=== PATIENT | female | born 1995 | race Caucasian/White ===

== ENCOUNTER 2018-09-04 17:02 | Inpatient (IN) | payer OTHER ==
[~2018-09-04] VITALS: Ht 154.9 cm; Wt 102.1 kg
[2018-09-09] MEDS ORDERED: FAMOTIDINE(*) 20MG/50ML PREMIX 50 ML IVPB PRN (20:30)
[2018-09-09] MEDS ORDERED: LIDOCAINE/SOD BICARB 8.4% SYR SC PRN (20:30)
[2018-09-09] MEDS ORDERED: LIDOCAINE 1% LOCAL 300 MG/30ML INJ PRN (20:30)
[2018-09-09] MEDS ORDERED: TERBUTALINE SULF 1 MG/ML VIAL IVP PRN (20:30)
[2018-09-09] MEDS ORDERED: fentaNYL CITR 100 MCG/2 ML AMP IVP PRN (20:30)
[2018-09-09] MEDS ORDERED: FLUSH 10 ML SYR IVP PRN (20:30)
[2018-09-09] MEDS ORDERED: METOCLOPRAMIDE 10 MG/2 ML SDV IVP PRN (20:30)
[2018-09-09] MEDS ORDERED: DLR(*) 1000 ML BAG 1,000 ML IV SCH (20:30)
[2018-09-09 20:50] LABS: PLATELET COUNT, AUTOMATED 313 K/uL (150-450)
[2018-09-09] MEDS ORDERED: ceFAZolin(*) 2GM/D5W 50ML 50 ML IVPB PRN (20:51)
[2018-09-09] MEDS ORDERED: DINOPROSTONE 10 MG INSERT PV ONE (20:55)
[2018-09-09 21:00] VITALS: BP 124/66; Ht 154.9 cm; Wt 102.1 kg
[2018-09-09] MEDS ORDERED: ZOLPIDEM TARTRATE 10 MG TAB PO PRN (21:00)
[2018-09-09] MEDS ORDERED: CALCIUM CARBONATE 500 MG CHEW PO PRN (21:00)
[2018-09-09] MEDS: LR(*) 1000 ML BAG 1,000 ML IV PRN (21:58)
[2018-09-09] MEDS ORDERED: MOM PO (22:38)
[2018-09-09] MEDS ORDERED: LACT1CAP12 (22:38)
[2018-09-09] MEDS ORDERED: PNV1TABL77 PO (22:38)
[2018-09-09] MEDS ORDERED: VIT500TA (22:38)
[2018-09-10] MEDS ORDERED: OXYTOCIN 30 UNIT/D5LR 500 ML 500 ML IV PRN ×2 (03:49→08:25)
[2018-09-10] MEDS: DLR(*) 1000 ML BAG 1,000 ML IV PRN ×2 (07:46→19:04)
[2018-09-10] MEDS: LR(*) 1000 ML BAG 1,000 ML IV PRN (07:46)
[2018-09-10] MEDS ORDERED: LR(*) 1000 ML BAG 1,000 ML IV PRN (10:32)
[2018-09-10] MEDS ORDERED: LIDO/EPI 2% MPF 1:200,000 20ML EPI PRN (10:35)
[2018-09-10] MEDS ORDERED: FENTANYL/ROPIVACAINE 100 ML BAG EPI PRN (10:35)
[2018-09-10] MEDS ORDERED: EPIDURAL KEYS XX PRN (10:35)
[2018-09-10] MEDS ORDERED: fentaNYL CITR 100 MCG/2 ML AMP IT PRN (10:35)
[2018-09-10] MEDS ORDERED: LIDOCAINE/PF 2% 200MG/10ML AMP 200 MG/10 ML AMPUL EPI PRN (10:35)
[2018-09-10] MEDS ORDERED: BUPIVACAINE 0.25% MPF INJ EPI PRN (10:35)
[2018-09-10] MEDS ORDERED: BUPIVACAINE 0.5% INJ 30ML VIAL EPI PRN (10:35)
[2018-09-10] MEDS ORDERED: ONDANSETRON 4 MG/2 ML VIAL ONE (10:59)
--- NOTE | 2018-09-10 11:57 | Anesthesia OB Pre-Anes Eval ---
History of Present Illness Anesthesia Start Date: Sep 10, 2018 Anesthesia Start Time: 11:02 OB Anesthesia Diagnosis: induction - medical EDC: Sep 04, 2018 : 1 Para: 0 Vital Signs: Vital Signs 09/09/18 21:00 Temp 97.1 Pulse 96 Resp 22 B/P (MAP) 124/66 (85) Pulse Ox 100 O2 Delivery Room Air Pain Ratin Result Diagram: 09/09/182039 Height (Inches): 61.00 Weight (Pounds): 225 BMI (kg/m2): 42.50 Past Medical History Medical History: obesity Surgical History: no surgical history Attended Childbirth Classes?: No Hx Anesthesia Reactions: No Hx Family Anesthesia Reaction: No Current Medications: pitocin, pain medication Home Meds Reported Medications Vit C/Ascorb Sod/Multivit-Min (Emergen-C 500 mg Chewable Tab) 500 Mg Tab.chew 09/09/18 Magnesium Hydroxide (MILK OF MAGNESIA) 400 Mg/5 Ml Oral.susp, 400 MG PO, BOTTLE 09/09/18 Lactobacillus Combo No.11 (PROBIOTIC) 1 Each Cap.sprink 09/09/18 Pnv Cmb#21/Iron/Folic Acid ( COMPLETE CAPLET) 1 Each Tablet, 1 EACH PO 09/09/18 Allergies: Coded Allergies: No Known Drug Allergies (Unverified , 09/09/18) Anesthesia OB ROS Neurological: No migraines/headaches, No seizures, No neuropathy, No other ENT: Denies Tooth caps, Denies Loose teeth, Denies Chipped teeth, Denies Dentures, Denies Bridges, Denies Retainers, Denies Veneers, Denies Implants, Denies Tongue ring, Denies Other Pulmonary: No asthma, No smoker (pks/day/yrs), No other Airway Class: lll Cardiovascular ROS: No edema, No arrhythmia, No other GI ROS: clear liquids Last Solids Date: Sep 09, 2018 Last Solids Time: 18:30 ROS: No Herpes, No STD(s), No Liver Disease, No Renal Disease, No Other Endocrine ROS: other (obese) Musculoskeletal ROS: No low back pain, No low back injury, No scoliosis, No other ASA Classification: 3 Assessment and Plan Anesthesia Plan: RAMA WOODSON CRNA Sep 10, 2018 11:57
--- NOTE | 2018-09-10 12:01 | Procedure Note ---
Anesthetic Placement Note Anesthesia Plan: CSE Permit for Anesthesia Signed: Yes Anesthesia Technique: Patient Sitting Anesthesia Prep: Chlorhexidine Interspace: L 2-3 Local Anesthetic: 1% Lidocaine Amount Local - cc's: 3 Anesthesia Needle: 17g Touhchandrika/Schishmaelff Anesthesia Attempts: 1 Loss of Resistance: Normal Saline Depth of ANTON (cm): 8 Epidural Needle Placement: No CSF, No Blood, No Parasthesia Intrathecal Needle: 27 Gauge Pencan Cerebral Spinal Fluid: Yes, Clear Catheter Insertion (cm): 4.5 (12 cm = skin) Catheter Type: [place] - Spring Wound Epidural Dressing: Tegaderm, Tape Anesthesia Tray: Lot Number ([id number]), Expiration Date (08/01), Reference Number ([id number]) Comment: deep adipose tissue along lumbar spine. Unable to feel any chelsie structures Anesthesia Medications: Intrathecal Dose: mcg Fentanyl (10), mg Marcaine MPF (2.5), Time (1120) Epidural Test Dose: 1.5 Lido/Epi (1:200,000), Dose - mL (3), Time (1123), Negative Epidural Infusion: 0.2% Ropivicaine, With Fentanyl 2mcg/ml, Start Time: (1138) Epidural Pump Setting: Bolus Dose - mL (8), Lockout - Minutes (20), Maintenance Rate - mL/hr (6), Maximum per Hour - mL (30) Complications: None RAMA SMITH CRNA Sep 10, 2018 12:01
--- NOTE | 2018-09-10 12:34 | History & Physical ---
History of Present Illness Age of Patient: 22 : 1 Para or TPAL: 0 EDC per LMP: Sep 04, 2018 Estimated Gestational Age: 40.6 Chief Complaint Labor induction History of Present Illness Presented for IOL, planned due to post-dates. care started at [facility] and transferred to al at 18 weeks. has been complicated initially by marginal previa, no bleeding but resolved on u/s at 27 weeks. Had Cervidil last night and was removed at 3 AM due to concern over decelerations. Has been transitioned to Pitocin. Past Medical, Surgical, Family and Obstetric Histories reviewed. Please see ACOG chart. History Allergies: Coded Allergies: No Known Drug Allergies (Unverified , 09/09/18) Med Rec Home Meds Reported Medications Vit C/Ascorb Sod/Multivit-Min (Emergen-C 500 mg Chewable Tab) 500 Mg Tab.chew 09/09/18 Magnesium Hydroxide (MILK OF MAGNESIA) 400 Mg/5 Ml Oral.susp, 400 MG PO, BOTTLE 09/09/18 Lactobacillus Combo No.11 (PROBIOTIC) 1 Each Cap.sprink 09/09/18 Pnv Cmb#21/Iron/Folic Acid ( COMPLETE CAPLET) 1 Each Tablet, 1 EACH PO 09/09/18 Review of Systems All Systems Reviewed/Normal: Yes, Except as Noted Exam General Exam Vital Signs Vital Signs Date Time Temp Pulse Resp B/P (MAP) Pulse Ox O2 Delivery O2 Flow Rate FiO2 09/09/18 21:00 97.1 96 22 124/66 (85) 100 Room Air General Apperance: Alert/Awake/No Acute Distress Neuro: No Gross deficits Eyes: Normal Extraocular Movement & Vison Cardiovascular: Regular Rate and Rhythm Respiratory: No Respiratory Distress Abdomen: Soft, Non-Tender, Non-Distended, Gravid - Non-Tender Integumentary: Skin Intact without Lesions or Rash Psychological: Alert & Oriented X3, Appropriate Mood & Affect Cervical Dialation: 5 Cervical Effacement (%): 100 Cervical Consistency: Soft Cervical Position: Anterior Station: -1 Presentation: Vertex Fetus Heart Tone Variabilty: Moderate FHT Accelerations: 15X15 FHT Category: I Medical Decision Making Data Points Result Diagram: 09/09/182039 Pre-Admit Course Medical Record Review: Yes VTE Prophylasis: Adult Deep Vein Thrombosis/Pulmonary: No Pharmacological Contraindicati: Pt at Low Risk for VTE Mechanical Contraindications: Pt at Low Risk for VTE 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 Expecting . Epidural just placed and comfortable. TACO COATES MD Sep 10, 2018 12:34
--- NOTE | 2018-09-10 16:07 | Anesthesia Progress Note ---
Progress/Maintenance Anesthesia Note Date: Sep 10, 2018 Anesthesia Note Time: 16:00 Pain Intensity: 1 Pump: On Pump Rate (ML/HR): 6 Sensory Level: perineal pressure Motor Level: Bending Knees-Bilateral Dilatation: 8 Position: Left, Tilt Drug Bolus: 0.2% Ropivicaine RAMA SMITH CRNA Sep 10, 2018 16:07
--- NOTE | 2018-09-10 20:33 | Anesthesia Progress Note ---
Progress/Maintenance Anesthesia Note Date: Sep 10, 2018 Anesthesia Note Time: 19:50 Pain Intensity: 5 Pump: On Pump Rate (ML/HR): 6 Sensory Level: pressure Motor Level: Bending Knees-Bilateral Dilatation: 10 Position: Semi-Fowlers Drug Bolus: 0.2% Ropivicaine, Fentanyl 2mcg/ml Anesthesia Treatment: pump bolus for RAMA Lutz CRNA Sep 10, 2018 20:33
--- NOTE | 2018-09-10 20:35 | Labor Progress Note ---
Labor Subjective Progress Notes Subjective Has progressed to completely dilated. Baby was in the LOP position on my assessment but rotated manually to CHEYANNE and is holding that position now. Effectively pushing. Pitocin had been reduced to 10 mu/min over concern about decelerations. Contractions now spacing out. Vaginal Discharge/Fluid: Bloody Show, Clear Fluid Labor Objective Vital Signs Vital Signs Date Time Temp Pulse Resp B/P (MAP) Pulse Ox O2 Delivery O2 Flow Rate FiO2 09/09/18 21:00 97.1 96 22 124/66 (85) 100 Room Air Vaginal Discharge/Fluid?: Bloody Show, Clear Fluid Cervical Dialation: 10 Cervical Effacement (%): 100 Cervical Consistency: Soft Cervical Position: Anterior Station: +3 (CHEYANNE) Fetus Heart Tone Variabilty: Moderate FHT Decelerations: Variable (with contractions) FHT Category: I Other Result Diagram: 09/09/182039 Assessment and Plan Problems: (1) Post-dates Assessment & Plan: approaching delivery soon. Will adjust and titrate Pitocin to meet labor needs. Coaching through contractions with pushing. Expecting . Problem Qualifiers (1) Post-dates : Post-term type: 40-42 weeks gestation Qualified Codes: O48.0 - Post-term TACO COATES MD Sep 10, 2018 20:35
[2018-09-10] MEDS ORDERED: INFLUENZA VIRUS VAC 0.5ML SYR IM ONLY ONE (21:25)
[2018-09-10] MEDS ORDERED: ACETAMINOPHEN 325 MG TAB PO PRN (21:25)
[2018-09-10] MEDS ORDERED: LANOLIN OINT 7 GM TUBE TP PRN (21:25)
[2018-09-10] MEDS ORDERED: BENZOCAINE 20% 60 ML BTL TP PRN (21:25)
[2018-09-10] MEDS ORDERED: MAGNESIUM HYDROXIDE* 30ML UDCP PO PRN (21:25)
[2018-09-10] MEDS ORDERED: MEASLES,MUMP,RUBELLA VAC 0.5ML SUBQ ONE (21:25)
[2018-09-10] MEDS ORDERED: APAP/HYDROCODONE 325/5 TAB PO PRN (21:25)
[2018-09-10] MEDS ORDERED: DIPHTH/TETANUS/ACEL. PERTUSSIS IM ONLY ONE (21:25)
[2018-09-10] MEDS ORDERED: HYDROCORTISONE 2.5% CR 30GM TB PR PRN (21:25)
[2018-09-10] MEDS ORDERED: GLYCERIN/WITCH HAZEL LEAF 1 PK TP PRN (21:25)
--- NOTE | 2018-09-10 21:33 | OB Delivery Note ---
Delivery Note Vaginal Delivery Type: Spont. Vaginal Delivery Delivery Date: Sep 10, 2018 Delivery Time: 21:03 Estimated Gestational Age(wks): 40.6 Delivery Anesthesia: Epidural Sex: Female [place] Apgars: 1 Minute (8), 5 Minute (9) Repair Needed: Laceration, Labial (left majora), 1st Degree Estimated Blood Loss: 500 Delivery Complications: Hemorrhage (early uterine atony resolved with Pitocin infusion) Notes: IOL beginning last night with Cervidil. Cervidil removed early at 0300 and then Pitocin was not started until 8 am. Was 2 cm on admission, progressing to 3 cm by 1025, 5 cm by 1200 and 6-7 cm by 1400. Baby felt to be in LOP position. Slow further progression to 8 cm by 1557, 9.5 cm by 1803 and labored down to complete by 2008. Baby was able to manually rotate to CHEYANNE with pushing and progressed resumed at normal pace. Variable decelerations were noted at time along with category 1 tracing. Delivered in CHEYANNE position over a first degree laceration with extension to left labia majora. Placenta delivered intact and spontaneous. Repair with 2-0 Chromic with good result. Early uterine atony produced some brisk bleeding initially but responded well to massage and Pitocin bolus. Bleeding scant upon completion of repair. [employer] in Attendence: No Copies to: TACO COATES MD ; TACO COATES MD Sep 10, 2018 21:33
[2018-09-10] MEDS: IBUPROFEN 800 MG TAB PO SCH (21:51)
[2018-09-10 23:40] VITALS: BP 107/51
[2018-09-11 03:00] VITALS: BP 114/57
[2018-09-11] MEDS: IBUPROFEN 800 MG TAB PO SCH ×3 (06:39→23:08)
[2018-09-11 07:25] VITALS: BP 111/59
[2018-09-11] MEDS ORDERED: IBUPROFEN 800 MG TAB PO SCH (09:00)
[2018-09-11] MEDS: DOCUSATE CALCIUM 240 MG CAP PO SCH ×2 (10:13→20:36)
[2018-09-11 11:20] VITALS: BP 110/56
--- NOTE | 2018-09-11 12:07 | Anesthesia Post Eval Note ---
Anesthesia Post Eval Note Vital Signs 09/11/18 09/11/18 07:25 11:20 Temp 97.5 Pulse 89 Resp 16 B/P (MAP) 110/56 (74) Pulse Ox 95 O2 Delivery Room Air Pt able to participate in Eval: Yes Cardiovascular Status: Satisfactory Respiratory Status: Satisfactory Pain Managment: Satisfactory PO Nausea/Vomiting: Satisfactory Temperature Management: Satisfactory Mental Status: Satisfactory, Alert, Oriented X3 Post-Op Hydration Status: Satisfactory, Tolerating PO Well, Voiding w/o Difficulty Anesthesia Type: RAMA WOODSON CRNA Sep 11, 2018 12:07
--- NOTE | 2018-09-11 12:19 | OB/GYN Progress Note ---
OB Subjective Progress Notes Subjective Feeling well. Up to BR well and voiding well. Bleeding light. GI: NEG Nausea : Voiding Well Pain: Mild OB Objective Physical Exam Vital Signs Date Time Temp Pulse Resp B/P (MAP) Pulse Ox O2 Delivery O2 Flow Rate FiO2 09/11/18 11:20 97.5 89 16 110/56 (74) Room Air 09/11/18 07:25 95 Intake and Output 09/11/18 07:00 Intake Total 5000 ml Output Total 1500 ml Balance 3500 ml IV Total 5000 ml Output Urine Total 1500 ml General Appearance: Alert/Awake/No Acute Distress Neurological: No Gross deficits Eyes: Normal Extraocular Movement & Vison Respiratory: No Respiratory Distress, Clear to Auscultation Abdomen: Soft, Non-Tender, Non-Distended, Fundus Firm Integumentary: Skin Intact without Lesions or Rash Psychological: Alert & Oriented X3, Appropriate Mood & Affect Result Diagram: 09/11/18 0623 Assessment and Plan 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 Precautions and continue PNVs. (3) care and examination immediately after delivery Assessment & Plan: Continue breast feeding support and plan home tomorrow. Problem Qualifiers (1) Post-dates : Post-term type: 40-42 weeks gestation Qualified Codes: O48.0 - Post-term TACO COATES MD Sep 11, 2018 12:19
[2018-09-11] MEDS: ACETAMINOPHEN 325 MG TAB PO PRN ×2 (13:29→20:38)
[2018-09-11 18:56] VITALS: BP 115/53
[2018-09-11 23:06] VITALS: BP 112/66
[2018-09-12 03:45] VITALS: BP 117/55
[2018-09-12] MEDS: IBUPROFEN 800 MG TAB PO SCH (07:14)
--- NOTE | 2018-09-12 08:05 | OB/GYN Progress Note ---
OB Subjective Progress Notes Subjective Feeling well. Pain well controlled and bleeding light. GI: NEG Nausea : Voiding Well Pain: Mild OB Objective Physical Exam Vital Signs Date Time Temp Pulse Resp B/P (MAP) Pulse Ox O2 Delivery O2 Flow Rate FiO2 09/12/18 03:45 97.7 78 18 117/55 (75) Blow-by 09/11/18 07:25 95 Intake and Output 09/12/18 07:00 Intake Total 120 ml Output Total 300 ml Balance -180 ml Intake Oral 120 ml Output Urine Total 300 ml # Voids 1 General Appearance: Alert/Awake/No Acute Distress Neurological: No Gross deficits Eyes: Normal Extraocular Movement & Vison Cardiovascular: Normal Rhythm & Peripheral Pulses, Regular Rate and Rhythm Respiratory: No Respiratory Distress, Clear to Auscultation Abdomen: Soft, Non-Tender, Non-Distended, Fundus Firm Integumentary: Skin Intact without Lesions or Rash Psychological: Alert & Oriented X3, Appropriate Mood & Affect Result Diagram: 09/11/18 0623 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 Call if problems. Precautions reviewed. Problem Qualifiers (1) Post-dates : Post-term type: 40-42 weeks gestation Qualified Codes: O48.0 - Post-term TACO COATES MD Sep 12, 2018 08:05
[2018-09-12] MEDS ORDERED: IBUP800T37 PO (08:07)
--- NOTE | 2018-09-12 08:10 | OB/GYN Discharge Summary ---
Discharge Summary Reason for Hosp/Final Diag: (1) Post-dates Hospital Course & Plan: Admitted for IOL due to post-dates. Cervidil followed by Pitocin induction resulted in with first degree laceration with left labial extension, repaired well. No complications. (2) Anemia due to acute blood loss Hospital Course & Plan: Initial uterine atony resulted in brisk early bleeding that corrected with massage and Pitocin infusion. Stable postoperative. Will have her continue PNVs with iron. (3) care and examination immediately after delivery Lates Vital Signs Vital Signs Date Time Temp Pulse Resp B/P (MAP) Pulse Ox O2 Delivery O2 Flow Rate FiO2 09/12/18 03:45 97.7 78 18 117/55 (75) Blow-by 09/11/18 07:25 95 Weight (Pounds): 225 Result Diagram: 09/11/18622 Condition: Improved Discharge: Home, Self Prison Meds Reported Medications Vit C/Ascorb Sod/Multivit-Min (Emergen-C 500 mg Chewable Tab) 500 Mg Tab.chew 09/09/18 Magnesium Hydroxide (MILK OF MAGNESIA) 400 Mg/5 Ml Oral.susp, 400 MG PO, BOTTLE 09/09/18 Lactobacillus Combo No.11 (PROBIOTIC) 1 Each Cap.sprink 09/09/18 Pnv Cmb#21/Iron/Folic Acid ( COMPLETE CAPLET) 1 Each Tablet, 1 EACH PO 09/09/18 Follow up 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 Franklin [phone] Follow up in: 6 wks PP or PO Discharge Diet: As Tolerates Discharge Activity: As Tolerates, No Heavy Lifting x 6 wks, No Heavy Lifting > 10lb, Pelvic Rest Copies to: TACO FRANKLIN MD ; Problem Qualifiers (1) Post-dates : Post-term type: 40-42 weeks gestation Qualified Codes: O48.0 - Post-term TACO FRANKLIN MD Sep 12, 2018 08:10
[2018-09-12] MEDS: DOCUSATE CALCIUM 240 MG CAP PO SCH (08:48)
[2018-09-12 08:50] VITALS: BP 122/55
== END 2018-09-12 11:57 | disposition home or self-care (01) | DRG 806 ==
LOC: OB 09-09 19:40 → OBSVTOIN 09-09 19:40
PROVIDERS: ADMIT Obstetrics & Gynecology; ATTEND Obstetrics & Gynecology
PROC: 10E0XZZ Delivery of Products of Conception, External Approach (ICD-10-PCS; principal; 2018-09-09)
PROC: 0HQ9XZZ Repair Perineum Skin, External Approach (ICD-10-PCS; 2018-09-09)
PROC: 3E0P7VZ Introduction of Hormone into Female Reproductive, Via Natural or Artificial Opening (ICD-10-PCS; 2018-09-09)
DX: O48.0 Post-term pregnancy (principal); O72.1 Other immediate postpartum hemorrhage; Z37.0 Single live birth; D62 Acute posthemorrhagic anemia; O76 Abnormality in fetal heart rate and rhythm complicating labor and delivery; O99.214 Obesity complicating childbirth; O90.81 Anemia of the puerperium; O70.0 First degree perineal laceration during delivery; E66.9 Obesity, unspecified; Z3A.40 40 weeks gestation of pregnancy
CPT/HCPCS: 36415; 85025; 85027; 86592; 86850; 86900; 86901; J2405; J2590; J3010; J7120; S0020

== ENCOUNTER 2018-10-07 03:27 | Emergency (ER) | payer OTHER ==
[2018-09-09 21:00] VITALS: Wt 102.1 kg
[2018-10-07] MEDS ORDERED: ONDANSETRON 4 MG/2 ML VIAL IVP ONE (03:50)
[2018-10-07] MEDS ORDERED: GI COCKTAIL 60 ML BTL PO PRN (03:50)
[2018-10-07] MEDS ORDERED: NS(*) 0.9% 1000 ML BAG 1,000 ML IV ONE (03:50)
[2018-10-07 03:55] LABS: PLATELET COUNT, AUTOMATED 466 K/uL (150-450)
[2018-10-07] MEDS ORDERED: MAG HYD/AL HYD/SIMETH 30ML UDC PO ONE (03:55)
[2018-10-07] MEDS ORDERED: LIDOCAINE 2% VISC SLN 15ML UDC PO ONE (03:55)
--- NOTE | 2018-10-07 04:06 | ER Report ---
History and Physical Time Seen By MD: 03:45 Hx. of Stated Complaint: severe abdo pain, 3 weeks HPI/ROS 22 y/o female 3 weeks presents BIBA with midepigastric abdominal pain. Pain awoke her. Had a similar episode last week. Called 911, but did not come to the hospital. Denies alcohol. Episodes usually happen at night while lying down. Feels similar to heartburn. Remainder of the 14 system rev: Yes Allergies: Coded Allergies: No Known Drug Allergies (Unverified , 09/09/18) Home Meds Active Scripts Ibuprofen (IBUPROFEN) 800 Mg Tablet, 800 MG PO Q8H PRN for PAIN, #30 TAB 0 Refills Prov:TACO COATES MD 09/12/18 Reported Medications Vit C/Ascorb Sod/Multivit-Min (Emergen-C 500 mg Chewable Tab) 500 Mg Tab.chew 09/09/18 Magnesium Hydroxide (MILK OF MAGNESIA) 400 Mg/5 Ml Oral.susp, 400 MG PO, BOTTLE 09/09/18 Lactobacillus Combo No.11 (PROBIOTIC) 1 Each Cap.sprink 09/09/18 Pnv Cmb#21/Iron/Folic Acid ( COMPLETE CAPLET) 1 Each Tablet, 1 EACH PO 09/09/18 Reviewed Nurses Notes: Yes Old Medical Records Reviewed: Yes Hx Smoking: No Smoking Status: Never Smoker Exposure to Second Hand Smoke?: No Hx Substance Use Disorder: No Hx Alcohol Use: No Constitutional Vital Sign - Last 24 Hours 10/07/18 03:32 Temp 97.4 Pulse 107 Resp 20 B/P (MAP) 133/82 Pulse Ox 97 O2 Delivery Room Air Physical Exam General Appearance: The patient is alert, has no immediate need for airway protection and no current signs of toxicity. Eyes: Pupils equal and round no injection. Respiratory: Chest is non tender, lungs are clear to auscultation. Cardiac: regular rate and rhythm Gastrointestinal: Abdomen is soft and non tender, no masses, bowel sounds normal. Skin: No rashes or lesions. DIFFERENTIAL DIAGNOSIS: After history and physical exam differential diagnosis was considered for abdominal pain including but not limited to appendicitis, cholecystitis, gastritis and urinary tract infection. Medical Decision Making Data Points Result Diagram: 10/07/18 0328 10/07/18 0328 Laboratory Hematology Test 10/07/18 03:28 Red Blood Count 4.80 M/uL (4.17-5.56) Mean Corpuscular Volume 84.7 fL (80.0-96.0) Mean Corpuscular Hemoglobin 28.1 pg (26.0-33.0) Mean Corpuscular Hemoglobin Concent 33.2 g/dL (32.0-36.0) Red Cell Distribution Width 14.7 % (11.5-14.5) Mean Platelet Volume 7.7 fL (7.2-11.1) Neutrophils (%) (Auto) 41.0 % (39.4-72.5) Lymphocytes (%) (Auto) 46.8 % (17.6-49.6) Monocytes (%) (Auto) 8.2 % (4.1-12.4) Eosinophils (%) (Auto) 3.4 % (0.4-6.7) Basophils (%) (Auto) 0.6 % (0.3-1.4) Nucleated RBC Relative Count (auto) 0.0 /100WBC Neutrophils # (Auto) 4.6 K/uL (2.0-7.4) Lymphocytes # (Auto) 5.3 K/uL (1.3-3.6) Monocytes # (Auto) 0.9 K/uL (0.3-1.0) Eosinophils # (Auto) 0.4 K/uL (0.0-0.5) Basophils # (Auto) 0.1 K/uL (0.0-0.1) Nucleated RBC Absolute Count (auto) 0.00 K/uL Sodium Level 138 mmol/L (137-145) Potassium Level 4.0 mmol/L (3.5-5.0) Chloride Level 106 mmol/L (98-107) Carbon Dioxide Level 25 mmol/L (22-31) Blood Urea Nitrogen 20 mg/dl (7-18) Creatinine 0.80 mg/dl (0.52-1.04) Glomerular Filtration Rate Calc > 60.0 Random Glucose 104 mg/dl (75-110) Calcium Level 10.0 mg/dl (8.4-10.2) Total Bilirubin 0.2 mg/dl (0.2-1.3) Aspartate Amino Transf (AST/SGOT) 57 U/L (0-35) Alanine Aminotransferase (ALT/SGPT) 39 U/L (0-56) Alkaline Phosphatase 121 U/L (0-126) Total Protein 7.8 g/dl (6.3-8.2) Albumin 4.1 g/dl (3.5-5.0) Lipase 179 U/L (23-300) Chemistry Test 10/07/18 03:28 White Blood Count 11.3 k/uL (4.5-11.0) Red Blood Count 4.80 M/uL (4.17-5.56) Hemoglobin 13.5 g/dL (12.0-16.0) Hematocrit 40.6 % (34.0-47.0) Mean Corpuscular Volume 84.7 fL (80.0-96.0) Mean Corpuscular Hemoglobin 28.1 pg (26.0-33.0) Mean Corpuscular Hemoglobin Concent 33.2 g/dL (32.0-36.0) Red Cell Distribution Width 14.7 % (11.5-14.5) Platelet Count 466 K/uL (150-450) Mean Platelet Volume 7.7 fL (7.2-11.1) Neutrophils (%) (Auto) 41.0 % (39.4-72.5) Lymphocytes (%) (Auto) 46.8 % (17.6-49.6) Monocytes (%) (Auto) 8.2 % (4.1-12.4) Eosinophils (%) (Auto) 3.4 % (0.4-6.7) Basophils (%) (Auto) 0.6 % (0.3-1.4) Nucleated RBC Relative Count (auto) 0.0 /100WBC Neutrophils # (Auto) 4.6 K/uL (2.0-7.4) Lymphocytes # (Auto) 5.3 K/uL (1.3-3.6) Monocytes # (Auto) 0.9 K/uL (0.3-1.0) Eosinophils # (Auto) 0.4 K/uL (0.0-0.5) Basophils # (Auto) 0.1 K/uL (0.0-0.1) Nucleated RBC Absolute Count (auto) 0.00 K/uL Glomerular Filtration Rate Calc > 60.0 Calcium Level 10.0 mg/dl (8.4-10.2) Total Bilirubin 0.2 mg/dl (0.2-1.3) Aspartate Amino Transf (AST/SGOT) 57 U/L (0-35) Alanine Aminotransferase (ALT/SGPT) 39 U/L (0-56) Alkaline Phosphatase 121 U/L (0-126) Total Protein 7.8 g/dl (6.3-8.2) Albumin 4.1 g/dl (3.5-5.0) Lipase 179 U/L (23-300) ED Course/Re-evaluation ED Course Benign abdominal exam. Labs within normal limits. No imaging needed at this time. Symptoms could represent biliary colic versus GERD. Improved with GI cocktail, Zofran, and pepcid. Will skilled nursing facility counselor her to start taking Zantac daily. Will follow up with her PCM. Decision to Disposition Date: Oct 07, 2018 Decision to Disposition Time: 04:16 Depart Departure Latest Vital Signs Vital Signs Date Time Temp Pulse Resp B/P (MAP) Pulse Ox O2 Delivery O2 Flow Rate FiO2 10/07/18 03:32 97.4 107 20 133/82 97 Room Air Impression: Primary Impression: GERD (gastroesophageal reflux disease) Condition: Improved Disposition: HOME OR SELF-CARE Referrals: TACO COATES MD (PCP) Patient Instructions: Gastroesophageal Reflux Disease (ED) Problem Qualifiers Primary Impression: GERD (gastroesophageal reflux disease) Esophagitis presence: esophagitis presence not specified Qualified Codes: K21.9 - Gastro-esophageal reflux disease without esophagitis GASTON ACEVEDO MD Oct 07, 2018 04:06
[2018-10-07] MEDS ORDERED: FAMOTIDINE 10 MG/ML SDV IVP ONE (04:10)
[2018-10-07 04:15] VITALS: BP 127/100
[2018-10-07] MEDS ORDERED: FAMOTIDINE 20 MG TAB PO ONE (04:15)
== END 2018-10-07 04:30 | disposition home or self-care (01) ==
LOC: ER 03:47
DX: K21.9 Gastro-esophageal reflux disease without esophagitis (principal)
CPT/HCPCS: 83690; 85025; 96374; 99283; J2405; J7030; 82040; 82247; 82310; 82374; 82435; 82565; 82947; 84075; 84132; 84155; 84295; 84450; 84460; 84520

== ENCOUNTER → 2018-10-07 | Outpatient (CLI) | payer OTHER ==
[2018-09-09 21:00] VITALS: BMI 42.5
[~2018-10-07] MED LIST: IBUP800T37 PO; LACT1CAP12; MOM PO; PNV1TABL77 PO; VIT500TA
== END ==
LOC: AMB 03:11
PROVIDERS: ATTEND Nurse Practitioner
DX: R10.13 Epigastric pain (principal); R06.02 Shortness of breath
CPT/HCPCS: A0425; A0427

== ENCOUNTER 2019-02-28 05:35 | Observation (INO) | payer OTHER ==
[2018-09-09 21:00] VITALS: Wt 104.3 kg
[2019-02-28] VITALS (9 sets, daily range): BP systolic 104–127; BP diastolic 51–84
[2019-02-28] MEDS ORDERED: RANI-54 PO (05:40)
[2019-02-28] MEDS ORDERED: SERT-173 PO (05:40)
--- NOTE | 2019-02-28 05:48 | ER Report ---
History and Physical Time Seen By MD: 05:47 Hx. of Stated Complaint: PT REPORTS UPPER QUADRANT MEDIAL PAIN THAT RADIATES TO CHEST. (GILLIAN YODER MD) Time Seen By MD: 07:00 (BEKA OROZCO DO) HPI/ROS CHIEF COMPLAINT: Abdominal pain HISTORY OF PRESENT ILLNESS: This is a 23 year old female. Pain is in the periumbilical, epigastric and right upper abdomen mostly. Radiates to the back. Nothing makes it worse or better. Nausea and vomiting, unable to keep anything down. No hematemesis. Normal bowels. REVIEW OF SYSTEMS: Constitutional: No fever or chills. Cardiovascular: No chest pain. Respiratory: No shortness of breath. Gastrointestinal: As above. Genitourinary: No dysuria. No frequency Musculoskeletal: No extremity pain. Skin: No rashes. (GILLIAN YODER MD) HPI/ROS Please see Dr. Yoder note (BEKA OROZCO DO) Allergies: Coded Allergies: No Known Drug Allergies (Unverified , 02/28/19) Home Meds Reported Medications Ranitidine Hcl (ZANTAC) 150 Mg Tablet, 150 MG PO BID, TAB 02/28/19 Sertraline Hcl (ZOLOFT) 100 Mg Tablet, 1 TAB PO QDAY, TAB 02/28/19 Discontinued Reported Medications Vit C/Ascorb Sod/Multivit-Min (Emergen-C 500 mg Chewable Tab) 500 Mg Tab.chew 09/09/18 Magnesium Hydroxide (MILK OF MAGNESIA) 400 Mg/5 Ml Oral.susp, 400 MG PO, BOTTLE 09/09/18 Lactobacillus Combo No.11 (PROBIOTIC) 1 Each Cap.sprink 09/09/18 Pnv Cmb#21/Iron/Folic Acid ( COMPLETE CAPLET) 1 Each Tablet, 1 EACH PO 09/09/18 Discontinued Scripts Ibuprofen (IBUPROFEN) 800 Mg Tablet, 800 MG PO Q8H PRN for PAIN, #30 TAB 0 Refills Prov:TACO COATES MD 09/12/18 Reviewed Nurses Notes: Yes (GILLIAN YODER MD) Hx Smoking: No Smoking Status: Never Smoker Exposure to Second Hand Smoke?: No Hx Substance Use Disorder: No Hx Alcohol Use: No (GILLIAN YODER MD) Constitutional Vital Sign - Last 24 Hours 02/28/19 02/28/19 02/28/19 6/18/19 05:39 05:41 05:50 06:00 Temp 98.0 Pulse 100 93 Resp 20 B/P (MAP) 122/71 (88) 122/71 125/75 (92) Pulse Ox 95 96 O2 Delivery Room Air 02/28/19 02/28/19 02/28/19 02/28/19 06:05 06:20 06:25 06:30 Pulse 166 82 88 88 B/P (MAP) 117/76 (90) Pulse Ox 94 97 91 93 1802/28/02/28/19 02/28/19 06:35 06:40 06:45 06:50 Pulse 96 91 ? Pulse Ox 96 97 02/28/19 02/28/1902/28/02/28/19 06:55 06:59 07:00 07:05 Pulse ??? 89 88 B/P (MAP) 117/68 (84) Pulse Ox 93 88 02/28/19 02/28/1918/02/28/19 07:10 07:15 07:20 07:25 Pulse 92 87 82 82 Pulse Ox 92 94 89 93 1818/18/02/28/19 07:30 07:35 07:40 07:45 Pulse 83 81 87 83 B/P (MAP) 107/73 (84) Pulse Ox 83 96 89 02/28/18/01 03/18/02/28/19 07:50 07:55 08:00 08:05 Pulse 73 94 76 81 B/P (MAP) 105/63 (77) Pulse Ox 92 92 92 95 18/18/01 03/18/02/28/19 08:10 08:15 08:20 08:25 Pulse ??? 71 77 77 Pulse Ox 97 93 96 02/28/18/01 03/18/02/28/19 08:30 08:35 08:40 08:45 Pulse 71 67 75 70 B/P (MAP) 111/74 (86) Pulse Ox 97 95 94 91 18/19 18/19 18/19 02/28/19 08:50 08:55 09:00 09:05 Pulse 72 75 69 73 B/P (MAP) 108/64 (79) Pulse Ox 93 88 91 02/28/19 02/28/19 02/28/19 02/28/19 09:10 09:15 09:20 09:25 Pulse 73 81 71 74 Pulse Ox 91 93 94 91 02/28/19 02/28/19 02/28/19 02/28/19 09:30 09:35 09:40 09:45 Pulse ??? 69 67 66 B/P (MAP) 112/64 (80) Pulse Ox 93 93 97 97 02/28/19 02/28/19 02/28/19 02/28/19 09:50 09:55 10:00 10:05 Pulse 61 61 70 80 B/P (MAP) 101/78 (86) Pulse Ox 96 96 90 96 02/28/19 02/28/19 02/28/19 02/28/19 10:10 10:15 10:20 10:25 Pulse 71 71 74 72 Pulse Ox 94 95 94 96 02/28/19 02/28/19 02/28/19 02/28/19 10:30 10:35 10:40 10:45 Pulse 70 71 70 83 B/P (MAP) ???/??? (1665) Pulse Ox 98 98 94 93 (BEKA OROZCO DO) Physical Exam General Appearance: The patient is alert. Severe distress due to pain. Eyes: Pupils are equal, round. No pallor, injection or icterus. ENT: Mucous membranes are moist. Normal oral mucosa. Posterior oropharynx is normal. Neck: Supple and non tender. Respiratory: Lungs are clear to auscultation. Worsening pain with breathing. Cardiovascular: Regular rate and rhythm. No murmurs, gallops or rubs. Normal capillary refill. Gastrointestinal: Abdomen is soft, extremely tender in epigastric, periumbilical and right upper quadrant. Nondistended. Normal active bowel sounds. Neurological: Alert and oriented x3. Skin: Warm and dry. DIFFERENTIAL DIAGNOSIS: After history and physical exam, differential diagnosis was considered for epigastric area pain including but not limited to biliary colic, cholecystitis, peptic ulcer disease, pancreatitis, and gastroenteritis. (GILLIAN YODER MD) Physical Exam Please see Dr. Yoder note (BEKA OROZCO DO) Medical Decision Making Data Points Result Diagram: 02/28/19 0600 02/28/19 0600 Laboratory Hematology Test 02/28/19 06:00 02/28/19 08:07 Red Blood Count 5.32 M/uL (4.17-5.56) Mean Corpuscular Volume 78.1 fL (80.0-96.0) Mean Corpuscular Hemoglobin 25.5 pg (26.0-33.0) Mean Corpuscular Hemoglobin Concent 32.7 g/dL (32.0-36.0) Red Cell Distribution Width 15.9 % (11.5-14.5) Mean Platelet Volume 7.7 fL (7.2-11.1) Neutrophils (%) (Auto) 75.8 % (39.4-72.5) Lymphocytes (%) (Auto) 17.0 % (17.6-49.6) Monocytes (%) (Auto) 6.5 % (4.1-12.4) Eosinophils (%) (Auto) 0.3 % (0.4-6.7) Basophils (%) (Auto) 0.4 % (0.3-1.4) Nucleated RBC Relative Count (auto) 0.0 /100WBC Neutrophils # (Auto) 6.4 K/uL (2.0-7.4) Lymphocytes # (Auto) 1.4 K/uL (1.3-3.6) Monocytes # (Auto) 0.6 K/uL (0.3-1.0) Eosinophils # (Auto) 0.0 K/uL (0.0-0.5) Basophils # (Auto) 0.0 K/uL (0.0-0.1) Nucleated RBC Absolute Count (auto) 0.00 K/uL Sodium Level 141 mmol/L (137-145) Potassium Level 3.8 mmol/L (3.5-5.0) Chloride Level 104 mmol/L (98-107) Carbon Dioxide Level 24 mmol/L (22-31) Blood Urea Nitrogen 13 mg/dl (7-18) Creatinine 0.70 mg/dl (0.52-1.04) Glomerular Filtration Rate Calc > 60.0 Random Glucose 124 mg/dl (75-110) Calcium Level 9.7 mg/dl (8.4-10.2) Total Bilirubin 1.0 mg/dl (0.2-1.3) Aspartate Amino Transf (AST/SGOT) 637 U/L (0-35) Alanine Aminotransferase (ALT/SGPT) 325 U/L (0-56) Alkaline Phosphatase 200 U/L (0-126) Total Protein 8.1 g/dl (6.3-8.2) Albumin 4.4 g/dl (3.5-5.0) Amylase Level 69 U/L (0-110) Lipase 132 U/L (23-300) Human Chorionic Gonadotropin, Qual Negative (NEGATIVE) Helicobacter pylori IgG Antibody Negative (NEGATIVE) Urine Color Yellow Urine Clarity Clear Urine pH 7.0 pH (4.8-9.5) Urine Specific Willard 1.005 Urine Protein Negative mg/dL (NEGATIVE) Urine Glucose (UA) Negative mg/dL (NEGATIVE) Urine Ketones Negative mg/dL (NEGATIVE) Urine Blood Negative (NEGATIVE) Urine Nitrite Negative (NEGATIVE) Urine Bilirubin Negative (NEGATIVE) Urine Urobilinogen Negative mg/dL (0.2-1.9) Urine Leukocyte Esterase Negative (NEGATIVE) Urine RBC None /HPF (0-2/HPF) Urine WBC None /HPF (0-5/HPF) Urine Squamous Epithelial Cells Many /LPF (</=FEW) Urine Bacteria Negative /HPF (NONE-FEW) Urine Mucus None /HPF (NONE-FEW) Chemistry Test 02/28/19 06:00 02/28/19 08:07 White Blood Count 8.5 k/uL (4.5-11.0) Red Blood Count 5.32 M/uL (4.17-5.56) Hemoglobin 13.6 g/dL (12.0-16.0) Hematocrit 41.6 % (34.0-47.0) Mean Corpuscular Volume 78.1 fL (80.0-96.0) Mean Corpuscular Hemoglobin 25.5 pg (26.0-33.0) Mean Corpuscular Hemoglobin Concent 32.7 g/dL (32.0-36.0) Red Cell Distribution Width 15.9 % (11.5-14.5) Platelet Count 379 K/uL (150-450) Mean Platelet Volume 7.7 fL (7.2-11.1) Neutrophils (%) (Auto) 75.8 % (39.4-72.5) Lymphocytes (%) (Auto) 17.0 % (17.6-49.6) Monocytes (%) (Auto) 6.5 % (4.1-12.4) Eosinophils (%) (Auto) 0.3 % (0.4-6.7) Basophils (%) (Auto) 0.4 % (0.3-1.4) Nucleated RBC Relative Count (auto) 0.0 /100WBC Neutrophils # (Auto) 6.4 K/uL (2.0-7.4) Lymphocytes # (Auto) 1.4 K/uL (1.3-3.6) Monocytes # (Auto) 0.6 K/uL (0.3-1.0) Eosinophils # (Auto) 0.0 K/uL (0.0-0.5) Basophils # (Auto) 0.0 K/uL (0.0-0.1) Nucleated RBC Absolute Count (auto) 0.00 K/uL Glomerular Filtration Rate Calc > 60.0 Calcium Level 9.7 mg/dl (8.4-10.2) Total Bilirubin 1.0 mg/dl (0.2-1.3) Aspartate Amino Transf (AST/SGOT) 637 U/L (0-35) Alanine Aminotransferase (ALT/SGPT) 325 U/L (0-56) Alkaline Phosphatase 200 U/L (0-126) Total Protein 8.1 g/dl (6.3-8.2) Albumin 4.4 g/dl (3.5-5.0) Amylase Level 69 U/L (0-110) Lipase 132 U/L (23-300) Human Chorionic Gonadotropin, Qual Negative (NEGATIVE) Helicobacter pylori IgG Antibody Negative (NEGATIVE) Urine Color Yellow Urine Clarity Clear Urine pH 7.0 pH (4.8-9.5) Urine Specific Willard 1.005 Urine Protein Negative mg/dL (NEGATIVE) Urine Glucose (UA) Negative mg/dL (NEGATIVE) Urine Ketones Negative mg/dL (NEGATIVE) Urine Blood Negative (NEGATIVE) Urine Nitrite Negative (NEGATIVE) Urine Bilirubin Negative (NEGATIVE) Urine Urobilinogen Negative mg/dL (0.2-1.9) Urine Leukocyte Esterase Negative (NEGATIVE) Urine RBC None /HPF (0-2/HPF) Urine WBC None /HPF (0-5/HPF) Urine Squamous Epithelial Cells Many /LPF (</=FEW) Urine Bacteria Negative /HPF (NONE-FEW) Urine Mucus None /HPF (NONE-FEW) Urinalysis Test 02/28/19 08:07 Urine Color Yellow Urine Clarity Clear Urine pH 7.0 pH (4.8-9.5) Urine Specific Willard 1.005 Urine Protein Negative mg/dL (NEGATIVE) Urine Glucose (UA) Negative mg/dL (NEGATIVE) Urine Ketones Negative mg/dL (NEGATIVE) Urine Blood Negative (NEGATIVE) Urine Nitrite Negative (NEGATIVE) Urine Bilirubin Negative (NEGATIVE) Urine Urobilinogen Negative mg/dL (0.2-1.9) Urine Leukocyte Esterase Negative (NEGATIVE) Urine RBC None /HPF (0-2/HPF) Urine WBC None /HPF (0-5/HPF) Urine Squamous Epithelial Cells Many /LPF (</=FEW) Urine Bacteria Negative /HPF (NONE-FEW) Urine Mucus None /HPF (NONE-FEW) (BEKA OROZCO DO) EKG/Imaging Imaging PATIENT NAME: Shakeel Charles : 1995 MR: [id number] V: [id number] EXAM DATE: ORDERING PHYSICIAN: GILLIAN YODER TECHNOLOGIST: Location: [facility] Patient: Shakeel Charles : 1995 Visit/Account:[id number] Date of Sevice: 02/28/2019 CT CTA ABDOMEN AND PELVIS W & W/O CONTRAST HISTORY: Midepigastric pain radiating to the back. TECHNIQUE: CTA abdomen and pelvis without and with IV contrast. 3D coronal slab MIPs and 2D reconstructions in the coronal and sagittal planes were also created. One of the following dose optimization techniques was utilized in the performance of this exam: Automated exposure control; adjustment of the mA and/or kV according to the patient's size; or use of an iterative reconstruction technique. Specific details can be referenced in the facility's radiology CT exam operational policy. CONTRAST: 75 mL Isovue-370. COMPARISON: None. FINDINGS: Vessels: Negative. Aorta is normal in caliber. There is no atherosclerosis/narrowing. No dissection. Visualized lung bases: Negative. Hepatobiliary: Punctate calcified gallstone within the gallbladder lumen. Questionable mild heterogeneous wall thickening of the gallbladder which may be artifactual. Otherwise negative. Liver is unremarkable. Spleen: Negative. Adrenals: Negative. Pancreas: Negative. No pancreatic or peripancreatic inflammation identified. Kidneys: Negative. No urolithiasis or hydronephrosis. GI: Negative. Appendix is unremarkable. No evidence for small bowel obstruction Spaces/nodes: Negative. Bones/soft tissues: Negative. IMPRESSION: 1. No evidence of an acute intra-abdominal or pelvic process. 2. Punctate calcified gallstone with questionable mild heterogeneous gallbladder wall thickening. If there is concern for potential cholecystitis, ultrasound could be considered. Report Dictated By: Hunter Mendieta MD at 02/28/2019 7:14 AM Report E-Signed By: Hunter Mendieta MD at 02/28/2019 9:11 AM WSN:[id number] (BEKA OROZCO DO) ED Course/Re-evaluation ED Course Patient given Morphine and Zofran for extreme pain. Also GI cocktail and Protonix IV. Transaminitis seen, negative bili, negative amylase/lipase. CTA abdomen and pelvis ordered. (GILLIAN YODER MD) ED Course I assumed patient care from Dr. Yoder at shift change at 7:00. CT imaging of the abdomen and pelvis was completed to evaluate for upper abdominal pain with transaminitis. Ultrasound of the right upper quadrant was completed to evaluate for gallbladder pathology. Patient does have numerous gallstones in place with no pericholecystic fluid or common bile duct dilatation. However, due to the patient's marketed transaminitis, decision was made to speak with Dr. Haji with surgery regarding further evaluation in the inpatient setting. Patient was admitted to surgery for further evaluation and care. Patient was hemodynamically stable at time of admission. Decision to Disposition Date: Feb 28, 2019 Decision to Disposition Time: 11:20 (BEKA OROZCO DO) Depart Departure Latest Vital Signs Vital Signs Date Time Temp Pulse Resp B/P (MAP) Pulse Ox O2 Delivery O2 Flow Rate FiO2 02/28/19 10:45 83 93 02/28/19 10:30 ???/??? (1665) 02/28/19 05:41 98.0 20 Room Air (BEKA OROZCO DO) Impression: Primary Impression: Transaminitis Additional Impressions: Abdominal pain Gallstones Condition: Condition Unchanged Disposition: Admitted from ER Referrals: TACO COATES MD (PCP) Problem Qualifiers GILLIAN YODER MD Feb 28, 2019 05:48 BEKA OROZCO DO Feb 28, 2019 07:05
[2019-02-28] MEDS ORDERED: NS(*) 0.9% 1000 ML BAG 1,000 ML IV ONE (05:54)
[2019-02-28] MEDS ORDERED: LIDOCAINE 2% VISC SLN 15ML UDC PO ONE (05:55)
[2019-02-28] MEDS ORDERED: ATRO/SCOPOL/HYOSCY/PB 5 ML ELX PO ONE (05:55)
[2019-02-28] MEDS ORDERED: MAG HYD/AL HYD/SIMETH 30ML UDC PO ONE (05:55)
[2019-02-28] MEDS ORDERED: PANTOPRAZOLE SOD 40 MG IV VIAL IVP ONE (05:55)
[2019-02-28] MEDS ORDERED: ONDANSETRON 4 MG/2 ML VIAL IVP ONE (05:55)
[2019-02-28] MEDS ORDERED: MORPHINE 4 MG/ML SDV IVP ONE (05:55)
[2019-02-28 06:17] LABS: PLATELET COUNT, AUTOMATED 379 K/uL (150-450)
[2019-02-28] MEDS ORDERED: IOPAMIDOL 76% 100 ML INFUS BTL 100 ML ONE (06:45)
[2019-02-28] MEDS ORDERED: NS(*) 0.9% 50 ML BAG 50 ML ONE (06:45)
--- NOTE | 2019-02-28 09:16 | RADIOLOGY IMAGING REPORT ---
FACILITY[place] [facility] [place]IENT NAME: Shakeel Charles : 1995 MR: [id number] V: [id number] EXAM DATE: ORDERING PHYSICIAN: GILLIAN CAPUTO TECHNOLOGIST: Location: [facility] [place] Patient: Shakeel Charles : 1995 Visit/Account:[id number] Date of Sevice: 02/28/2019 CT CTA ABDOMEN AND PELVIS W & W/O CONTRAST HISTORY: Midepigastric pain radiating to the back. TECHNIQUE: CTA abdomen and pelvis without and with IV contrast. 3D coronal slab MIPs and 2D reconstr uctions in the coronal and sagittal planes were also created. One of the following dose optimization techniques was utilized in the performance of this exam: Autom ated exposure control; adjustment of the mA and/or kV according to the patient's size; or use of an i terative reconstruction technique. Specific details can be referenced in the facility's radiology CT exam operational policy. CONTRAST: 75 mL Isovue-370. COMPARISON: None. FINDINGS: Vessels: Negative. Aorta is normal in caliber. There is no atherosclerosis/narrowing. No dissection . Visualized lung bases: Negative. Hepatobiliary: Punctate calcified gallstone within the gallbladder lumen. Questionable mild heteroge neous wall thickening of the gallbladder which may be artifactual. Otherwise negative. Liver is unrem arkable. Spleen: Negative. Adrenals: Negative. Pancreas: Negative. No pancreatic or peripancreatic inflammation identified. Kidneys: Negative. No urolithiasis or hydronephrosis. GI: Negative. Appendix is unremarkable. No evidence for small bowel obstruction Spaces/nodes: Negative. Bones/soft tissues: Negative. IMPRESSION: 1. No evidence of an acute intra-abdominal or pelvic process. 2. Punctate calcified gallstone with questionable mild heterogeneous gallbladder wall thickening. I f there is concern for potential cholecystitis, ultrasound could be considered. Report Dictated By: Hunter Mendieta MD at 02/28/2019 7:14 AM Report E-Signed By: Hunter Mendieta MD at 02/28/2019 9:11 AM WSN:[id number]
[2019-02-28] MEDS ORDERED: NS(*) 0.9% 1000 ML BAG 1,000 ML IV PRN ×2 (10:25→17:12)
[2019-02-28] MEDS ORDERED: FLUSH 10 ML SYR IVP PRN (10:25)
[2019-02-28] MEDS ORDERED: HYDROmorphone HCL 2 MG/ML SDV IVP PRN (10:25)
[2019-02-28] MEDS ORDERED: ONDANSETRON 4 MG/2 ML VIAL IVP PRN (10:25)
[2019-02-28] MEDS ORDERED: PIPERACILLIN/TAZO*3.375GM VIAL 3.375 GM in NS(*) 0.9% 100 ML MINI-BAG 100 ML IVPB SCH (12:00)
--- NOTE | 2019-02-28 13:26 | Gen Surgery History & Physical ---
History of Present Illness Chief Complaint RUQ and epigastric abdominal pain History of Present Illness 23yo female presents with RUQ and epigastric abdominal pain that has been occurring intermittently for 6 months. Started about 2 weeks after she delivered her baby. She has been seen for this and was told that she had GERD and was treated at various times with PPI and H2 adria therapy but her symptoms continued to recur. She came in to our ER where RUQ U/S reveals cholelithiasis but CBD is not dilated. Her transaminases are elevated as well but her bilirubin is normal. She denies a h/o jaundice, choleuria, or steatorrhea. History Problems: (1) depression Status: Chronic Home Meds Reported Medications Ranitidine Hcl (ZANTAC) 150 Mg Tablet, 150 MG PO BID, TAB 02/28/19 Sertraline Hcl (ZOLOFT) 100 Mg Tablet, 1 TAB PO QDAY, TAB 02/28/19 Discontinued Reported Medications Vit C/Ascorb Sod/Multivit-Min (Emergen-C 500 mg Chewable Tab) 500 Mg Tab.chew 09/09/18 Magnesium Hydroxide (MILK OF MAGNESIA) 400 Mg/5 Ml Oral.susp, 400 MG PO, BOTTLE 09/09/18 Lactobacillus Combo No.11 (PROBIOTIC) 1 Each Cap.sprink 09/09/18 Pnv Cmb#21/Iron/Folic Acid ( COMPLETE CAPLET) 1 Each Tablet, 1 EACH PO 09/09/18 Discontinued Scripts Ibuprofen (IBUPROFEN) 800 Mg Tablet, 800 MG PO Q8H PRN for PAIN, #30 TAB 0 Refills Prov:TACO COATES MD 09/12/18 Allergies: Coded Allergies: No Known Drug Allergies (Unverified , 02/28/19) Review of Systems All Systems Reviewed/Normal: Yes, Except as Noted Gastrointestinal: Nausea, Abdominal Pain Exam General Appearance: Alert, Awake, No Acute Distress, Afebrile Neuro: No Gross deficits Eyes: PERRLA GI: Other (Soft, RUQ TTP with positive Agrawal's sign) Extremities: Warm, Perfused Psych: Alert & Oriented X3, Appropriate Mood & Affect Medical Decision Making Data Points Result Diagram: 02/28/19 0600 02/28/19 0600 Assessment and Plan Problems: (1) Cholecystitis Status: Acute Assessment & Plan: 02/28/19: Admit, NPO, IV fluids, IV abx, to OR later today for lap courtney with cholangiogram. I have explained this plan, including the ramesh kenyatta, to the patient in detail along with the alternatives, risks, and expected recovery. She indicates her understanding of this discussion and her questions have been answered. She would like to proceed with this plan including surgery. (2) Transaminitis Status: Acute Assessment & Plan: Likely due to either passing a gallstone or cholecystitis. Will follow transaminases after surgery with further w/u to be completed if they don't decrease to normal after surgery. Condition Stable. Time Spent: < 30 min Venous Thromboembolism VTE Risk Physician Assess for VTE Risk: Yes Patient's VTE Risk: Low VTE Diagnostic Test 2 Days Prior to Admit: No Antithrombotics Is Pt On Any Antithrombotics?: No TATIANA TAYLOR MD Feb 28, 2019 13:26
[2019-02-28] MEDS ORDERED: fentaNYL CITR 250 MCG/5 ML AMP ONE (14:17)
[2019-02-28] MEDS ORDERED: ONDANSETRON 4 MG/2 ML VIAL ONE (14:19)
[2019-02-28] MEDS ORDERED: LIDOCAINE MPF 1% 5 ML VIAL ONE (14:19)
[2019-02-28] MEDS ORDERED: DEXAMETHASONE SOD PHOS 10MG/ML ONE (14:19)
[2019-02-28] MEDS ORDERED: PROPOFOL EMUL(*) 10MG/ML 20 ML 20 ML ONE (14:19)
[2019-02-28] MEDS ORDERED: KETAMINE HCL 200 MG/20 ML MDV ONE (14:21)
[2019-02-28] MEDS ORDERED: SUGAMMADEX SOD 200 MG/2 ML SDV ONE (14:22)
[2019-02-28] MEDS ORDERED: HALOPERIDOL LACT 5 MG/ML VIAL IM ONE (14:39)
[2019-02-28] MEDS ORDERED: MIDAZOLAM 2 MG/2 ML VIAL IVP PRN (14:50)
--- NOTE | 2019-02-28 14:51 | NUR ---
[facility]
[2019-02-28] MEDS ORDERED: IOPAMIDOL 61% 100 ML INFUS BTL 100 ML ONE (15:02)
[2019-02-28] MEDS ORDERED: ROPIVACAINE 0.5% 20 ML VIAL ONE ×2 (15:02→16:15)
[2019-02-28] MEDS ORDERED: SCOPOLAMINE 1.5 MG PATCH TD ONE (15:05)
[2019-02-28] MEDS ORDERED: [UNRECOGNIZED DRUG - OTHER] ONE (15:12)
[2019-02-28] MEDS ORDERED: LIDOCAINE 2% MDV 400MG/20ML VL ONE (16:11)
[2019-02-28] MEDS ORDERED: GLUCAGON 1 MG KIT ONE (16:11)
[2019-02-28] MEDS ORDERED: fentaNYL CITR 100 MCG/2 ML AMP ONE ×2 (16:15→17:17)
[2019-02-28] MEDS ORDERED: ACETAMINOPHEN 325 MG TAB PO PRN (17:15)
--- NOTE | 2019-02-28 17:24 | Post Operative Progress Note ---
Post Operative Progress Note Date: Feb 28, 2019 Time: 17:14 Surgeon: Unique Dictation number: [id number] Anesthesia: GETA by Dr. Garcia Pre-Op Diagnosis: Choledocholithiasis Cholecystitis Post-Op Diagnosis: LILIBETH Findings: Stone in distal CBD, cleared with stone basket Procedure(s): Laparoscopic cholecystectomy with IOC and CBD exploration and stone extraction Specimen Removed:(May be N/A): GB and contents Complications: None Fluids: See anesthesia records Estimated Blood Loss: Minimal Date OP Note Dictated: Feb 28, 2019 Time OP Note Dictated: 17:17 TATIANA TAYLOR MD Feb 28, 2019 17:24
[2019-02-28] MEDS ORDERED: HYDROmorphone HCL 2 MG/ML SDV ONE (17:38)
--- NOTE | 2019-02-28 18:02 | RADIOLOGY IMAGING REPORT ---
FACILITY: [facility] PATIENT NAME: Shakeel Charles : 1995 MR: [id number] V: [id number] EXAM DATE: ORDERING PHYSICIAN: TATIANA TAYLOR TECHNOLOGIST: Location: [facility] Patient: Shakeel Charles : 1995 Visit/Account:[id number] Date of Sevice: 02/28/2019 Study: Intraoperative cholangiogram Indication: Gallbladder disease Findings: Intraoperative spot films from a cholangiogram demonstrates opacification of the biliary t ree. There is no evidence of filling defect. Dosage: A total dose of 39.613 mGy cumulative Air Kerma was recorded. IMPRESSION: Intraoperative cholangiogram. Report Dictated By: Tanner Perez at 02/28/2019 5:55 PM Report E-Signed By: Tanner Perez at 02/28/2019 5:56 PM WSN:[id number]
[2019-02-28] MEDS: traMADol 50 MG TAB PO PRN (18:55)
--- NOTE | 2019-02-28 20:18 | OPERATIVE REPORT 1 ---
EVENT DATE: February 28, 2019 SURGEON: Jesus Calhoun MD ANESTHESIOLOGIST: Rishi Garcia MD ANESTHESIA: General endotracheal anesthesia. PREOPERATIVE DIAGNOSES 1. Choledocholithiasis. 2. Cholecystitis. POSTOPERATIVE DIAGNOSES 1. Choledocholithiasis. 2. Cholecystitis. PROCEDURES PERFORMED 1. Laparoscopic cholecystectomy with intraoperative cholangiogram. 2. Common bile duct exploration with stone extraction. COMPLICATIONS None. CONDITION Stable. BLOOD LOSS Minimal. INDICATIONS This is a 23-year-old female who presented to the Emergency Room with right upper quadrant abdominal pain with nausea. She was found to have transaminases in the 600 range and a mildly elevated alkaline phosphatase, but her bilirubin was normal. She had stones in her gallbladder. There was no common bile duct dilatation. She was admitted and started on IV antibiotics due to her right upper quadrant abdominal pain consistent with cholecystitis as well and then consented for a laparoscopic cholecystectomy with cholangiogram. DESCRIPTION OF PROCEDURE The patient was brought to the operating room and placed supine on the operating table. General endotracheal anesthesia was administered, and her abdomen was prepped and draped in a sterile fashion. Timeout was completed, and I injected the infraumbilical skin with 0.5% ropivacaine plain. I made a curvilinear smiley face incision in the infraumbilical rim and dissected through the dermis and subcutaneous fat. I identified the midline fascia and made a vertical incision in the midline fascia. I grasped the fascial edges with Jovita clamps and retracted the fascia towards the ceiling away from the underlying viscera and then entered the peritoneal cavity with my finger. I placed two interrupted 0 Vicryl sutures transversely through the vertical fascial defect and inserted a 12 mm Madonna-type port through this wound and secured it in place with sutures. I insufflated the abdomen to a pressure of 15 mmHg and inserted a 5 mm 30-degree angled scope through this port. Next, under direct visualization, I placed a 5 mm epigastric port and two right upper quadrant 5 mm ports. I then had the patient placed in reverse Trendelenburg and planed towards her left and removed the viscera from the right upper quadrant. I then grasped the fundus of the gallbladder and retracted it towards the patient's right shoulder, and the infundibulum was retracted towards the patient's right hip to open up the critical view. Next, I used the hook electrocautery and divided the peritoneum overlying the infundibulum and up both the medial and lateral aspects of the gallbladder. I then stripped the peritoneum down and used the combination of electrocautery and blunt dissection to clean off the cystic duct and cystic artery. The artery was clipped proximally and distally and divided between clips. I then clipped the cystic duct to the infundibulum/cystic duct junction. I made a ductotomy just distal to the clip and then milked the duct from distal to proximal to remove any debris from the duct and small stone debris that I removed from the duct. I then threaded the cholangiocatheter into the duct and clamped it into place, and I shot a cholangiogram image, which revealed a very long cystic duct all the way from the common duct structures, and I could clearly see the intrahepatic biliary system and common hepatic duct without any filling defects or abnormalities. The common bile duct was also visible, and I could not get contrast initially to flow into duodenum. I removed the cholangiocatheter and threaded the stone basket in the cystic duct through the ductotomy, and I ended up ultimately having to place another port in the right upper quadrant to facilitate this. I was able ultimately to thread the stone basket into the duodenum and deployed the basket, withdrew the scope, and was able to get the stone in the basket and pulled it out through the cystic duct. I then completed another cholangiogram at this point. Initially, the contrast stopped at the sphincter of Oddi, but ultimately was able to see contrast flow into the duodenum. I suspect the sphincter muscle was in spasm due to the trauma from the stone basket. After seeing a normal cholangiogram, I clipped the duct distal to the ductotomy with three clips, and then divided the duct between clips. I then divided the posterior attachments of the gallbladder separate from the gallbladder fossa, and I placed the gallbladder in a surgical specimen retrieval bag and removed it from the abdomen through the umbilical port site. I then irrigated and dried the right upper quadrant and inspected the gallbladder fossa as well as the cystic duct and artery stumps, and there was no bleeding or bile leaks. The clips were in good position and intact. I removed all the irrigation fluid from the right upper quadrant from both under the gallbladder fossa as well as Salazar pouch. I then removed all the instruments, desufflated the abdomen, and removed all the ports. I then closed the midline fascia with a [id number] 0 Vicryl suture and tied all three of these Vicryl sutures down with good reapproximation of the fascial edges and no remaining fascial defect. I then closed the skin incisions with 4-0 Monocryl subcuticular sutures. The skin was cleaned and dried, and Steri-Strips were applied, followed by sterile surgical dressings. The patient was awakened, extubated in the operating room, and transported to the recovery room in stable condition having tolerated the procedure without any apparent problems. MARIELA
[2019-02-28] MEDS ORDERED: SERTRALINE HCL 50 MG TAB PO SCH (21:00)
[2019-02-28] MEDS ORDERED: DOCUSATE SODIUM 100 MG CAP PO SCH (21:00)
[2019-02-28] MEDS ORDERED: FAMOTIDINE 20 MG TAB PO SCH (21:00)
[2019-03-01] MEDS: traMADol 50 MG TAB PO PRN ×2 (00:42→05:43)
[2019-03-01 01:22] VITALS: BP 111/65
[2019-03-01 06:00] VITALS: BP 111/65
[2019-03-01 06:08] LABS: PLATELET COUNT, AUTOMATED 385 K/uL (150-450)
[2019-03-01] MEDS ORDERED: DOCU-202 PO (06:58)
[2019-03-01] MEDS ORDERED: TRAM-420 PO (06:58)
--- NOTE | 2019-03-01 07:02 | Short(Outpt) Discharge Summary ---
Discharge Summary Reason for Hosp/Final Diag: (1) Cholecystitis Status: Acute Hospital Course & Plan: 02/28/19: Admit, NPO, IV fluids, IV abx, to OR later today for lap courtney with cholangiogram. I have explained this plan, including the surgery, to the patient in detail along with the alternatives, risks, and expected recovery. She indicates her understanding of this discussion and her questions have been answered. She would like to proceed with this plan including surgery. 03/01/19: POD#1 s/p lap courtney with IOC and CBD stone extraction. Doing well this morning. Normal postop pain. Preop symptoms better. LFTs still elevated but declining. She wishes to go home. Will d/c to home this morning and will recheck LFTs before her f/u appt. (2) Transaminitis Status: Acute Hospital Course & Plan: Likely due to either passing a gallstone or cholecystitis. Will follow transaminases after surgery with further w/u to be completed if they don't decrease to normal after surgery. Departure Discharge to: Home, Self Care Discharge Instructions Home Meds Active Scripts Tramadol Hcl (TRAMADOL HCL) 50 Mg Tablet, 1 TAB PO Q4H PRN for PAIN, #20 TAB 0 Refills Prov:TATIANA TAYLOR MD 03/01/19 Docusate Sodium (DOCUSATE SODIUM) 100 Mg Capsule, 1 CAP PO BID, #30 CAPSULE 0 Refills Prov:TATIANA TAYLOR MD 03/01/19 Reported Medications Ranitidine Hcl (ZANTAC) 150 Mg Tablet, 150 MG PO BID, TAB 02/28/19 Sertraline Hcl (ZOLOFT) 100 Mg Tablet, 1 TAB PO QDAY, TAB 02/28/19 Discontinued Reported Medications Vit C/Ascorb Sod/Multivit-Min (Emergen-C 500 mg Chewable Tab) 500 Mg Tab.chew 09/09/18 Magnesium Hydroxide (MILK OF MAGNESIA) 400 Mg/5 Ml Oral.susp, 400 MG PO, BOTTLE 09/09/18 Lactobacillus Combo No.11 (PROBIOTIC) 1 Each Cap.sprink 09/09/18 Pnv Cmb#21/Iron/Folic Acid ( COMPLETE CAPLET) 1 Each Tablet, 1 EACH PO 09/09/18 Discontinued Scripts Ibuprofen (IBUPROFEN) 800 Mg Tablet, 800 MG PO Q8H PRN for PAIN, #30 TAB 0 Refills Prov:TACO COATES MD 09/12/18 Follow up Referrals: General Surgery - 03/14/19 @ Surgery, General with TATIANA TAYLOR MD You have a follow up appointment scheduled with Dr. Taylor on 03/14/19, at 3:15pm. Diet: Regular Activity: As Tolerated Special Instructions: You may remove the white surgical dressings on , 03/02/19, then you can shower. After showering, leave the incisions open to air but leave the steristrips in place until they fall off on their own. Do not immerse the incisions for 2 weeks. Have your blood drawn a couple of hours before your follow up appointment so the results are available when I see you in my office to make sure your liver function tests have returned to normal at that time. TATIANA TAYLOR MD Mar 01, 2019 07:02
[2019-03-01 07:20] VITALS: BP 104/67
--- NOTE | 2019-03-01 07:48 | RADIOLOGY IMAGING REPORT ---
[place] [facility] [place] NAME: Shakeel Charles : 1995 MR: [id number] V: [id number] EXAM DATE: ORDERING PHYSICIAN: BEKA OROZCO TECHNOLOGIST: Location: [facility] - [place] Patient: Shakeel Charles : 1995 Visit/Account:[id number] Date of Sevice: 02/28/2019 EXAMINATION: Limited right upper quadrant ultrasound 02/28/2019 9:29 AM HISTORY: RUQ abd pain, transaminitis. COMPARISON STUDIES: CT today FINDINGS: Gallbladder: Multiple gallstones. Gallbladder wall is not thickened or edematous. Sonographic Agrawal sign is reported as positive. Liver: Borderline prominent. Echogenicity is unremarkable. No focal lesion. Portal venous flow is tow ards the liver. Common duct: 3 mm Pancreas: negative Right kidney: negative Upper abdominal aorta and IVC: negative Ascites: none IMPRESSION: 1. Gallstones within the gallbladder. Wall there are no other imaging findings of cholecystitis or bi liary obstruction, sonographic Agrawal sign is reported as positive. Ultrasound does not redemonstrate potential wall thickening shown by the CT. 2. Otherwise unremarkable study apart from borderline hepatomegaly. Report Dictated By: Tejas Coats MD at 02/28/2019 10:21 AM Report E-Signed By: Tejas Coats MD at 02/28/2019 10:23 AM WSN:[email or web address]
[2019-03-01] MEDS ORDERED: PANTOPRAZOLE SOD 40 MG IV VIAL IVP SCH (09:00)
[2019-03-01] MEDS ORDERED: SERTRALINE HCL 50 MG TAB PO SCH (09:00)
[2019-03-14] MEDS ORDERED: HYOS0.128 PO (15:49)
[2019-03-14] MEDS ORDERED: RANI-54 PO (15:49)
== END 2019-03-01 08:30 | disposition home or self-care (01) ==
LOC: ER 05:46 → INTOOBSV 10:46 → PED 10:46
PROVIDERS: ADMIT Surgery; ATTEND Surgery
DX: K80.40 Calculus of bile duct with cholecystitis, unspecified, without obstruction (principal); R74.0 Nonspecific elevation of levels of transaminase and lactic acid dehydrogenase [LDH]; R10.11 Right upper quadrant pain
CPT/HCPCS: 36415; 47563; 74174; 74300; 76705; 81001; 82150; 82248; 83690; 84703; 85025; 86677; 88304; 96372; C9113; G0378; J1100; J1170; J1610; J1630; J2001; J2250; J2270; J2405; J2543; J2704; J2795; J3010; J3490; J7030; J7050; Q9967; 82040; 82247; 82310; 82374; 82435; 82565; 82947; 84075; 84132; 84155; 84295; 84450; 84460; 84520

== ENCOUNTER 2019-03-12 18:08 | Emergency (ER) | payer OTHER ==
[2018-09-09 21:00] VITALS: Wt 72.6 kg
[~2019-03-12 18:08] MED LIST changes: +DOCU-202 PO; +RANI-54 PO; +SERT-173 PO; +TRAM-420 PO
[2019-03-12] MEDS ORDERED: NS(*) 0.9% 1000 ML BAG 1,000 ML IV ONE (18:27)
[2019-03-12] MEDS ORDERED: fentaNYL CITR 100 MCG/2 ML AMP IVP ONE (18:35)
[2019-03-12] MEDS ORDERED: ONDANSETRON 4 MG/2 ML VIAL IVP ONE (18:35)
[2019-03-12] MEDS ORDERED: IOPAMIDOL 76% 100 ML INFUS BTL 100 ML ONE (18:50)
--- NOTE | 2019-03-12 19:01 | ER Report ---
History and Physical Time Seen By MD: 18:32 Hx. of Stated Complaint: CHEST PAIN THAT HAS BEEN ON AND OFF FOR A WEEK ACCOMPANIED BY NAUSEA. STATES THIS FEELS THE SAME THE PAIN SHE HAD WITH HER GALLSTONES HPI/ROS CHIEF COMPLAINT: Epigastric abdominal pain HISTORY OF PRESENT ILLNESS: Patient is a 23-year-old female who was admitted on February 28 for gallstones status post laparoscopic cholecystectomy by DR Taylor, patient was complaining of similar pain that brought her in initially; states that no fevers or chills but just epigastric abdominal pain that is similar to her preoperative pain. REVIEW OF SYSTEMS: Constitutional:. Eyes: No discharge. ENT: No sore throat. Cardiovascular: No chest pain, no palpitations. Respiratory: No cough, no shortness of breath. Gastrointestinal: No abdominal pain, no vomiting. Genitourinary: No hematuria. Musculoskeletal: No back pain. Skin: No rashes. Neurological: No headache. Allergies: Coded Allergies: No Known Drug Allergies (Unverified , 03/12/19) Home Meds Active Scripts Ondansetron Hcl (ZOFRAN) 4 Mg Tablet, 4 MG PO Q8H for Nausea, #15 TAB 0 Refills Prov:JANETT JOLLY MD 03/12/19 Hydrocodone Bit/Acetaminophen (HYDROCODON-ACETAMINOPHEN 5-325) 1 Each Tablet, 1 EACH PO Q4H PRN for PAIN, #12 TAB 0 Refills Prov:JANETT JOLLY MD 03/12/19 Reported Medications Ranitidine Hcl (ZANTAC) 150 Mg Tablet, 150 MG PO BID, TAB 02/28/19 Sertraline Hcl (ZOLOFT) 100 Mg Tablet, 1 TAB PO QDAY, TAB 02/28/19 Discontinued Scripts Tramadol Hcl (TRAMADOL HCL) 50 Mg Tablet, 1 TAB PO Q4H PRN for PAIN, #20 TAB 0 Refills Prov:TATIANA TAYLOR MD 03/01/19 Docusate Sodium (DOCUSATE SODIUM) 100 Mg Capsule, 1 CAP PO BID, #30 CAPSULE 0 Refills Prov:TATIANA TAYLOR MD 03/01/19 Past Medical/Surgical History Gallstones Hx Smoking: No Smoking Status: Never Smoker Exposure to Second Hand Smoke?: No Hx Substance Use Disorder: No Hx Alcohol Use: No Constitutional Vital Sign - Last 24 Hours 603/12/19 03/12/19 03/12/19 18:08 18:09 18:14 18:38 Temp 97.9 Pulse ??? 80 82 Resp 20 18 B/P (MAP) 125/62 (83) 125/62 Pulse Ox 93 94 O2 Delivery Room Air 03/12/19 03/12/19 03/12/19 03/12/19 19:08 19:28 19:38 19:38 Pulse 71 71 Resp 51 11 11 B/P (MAP) 112/66 (81) Pulse Ox 94 98 98 03/12/19 20:08 Pulse 76 Resp 13 Pulse Ox 75 Physical Exam General/Constitutional: Patient is awake, alert, nontoxic and in no acute respiratory distress. Head: Normocephalic and atraumatic. Eyes: Conjunctival clear, Pupils are equal and reactive to light. Extraocular muscles are intact and symmetrical. Sclera are clear and anicteric. Ears:External canals are clear. Tympanic membranes are clear with normal landmarks and light reflex. Nares: No rhinorrhea or bleeding. Turbinates are pink and moist. Oropharyngeal: Mucous membranes are moist. There is no pharyngeal erythema or ex udate. There are no palatal petechiae. Uvula is midline and symmetrical. Neck: Supple, no adenopathy. Cardiovascular: Heart is regular rate and rhythm without audible murmurs, rubs or gallops. Pulmonary: Lungs are clear to auscultation bilaterally. There are no wheezes, rales, or rhonchi. Chest rise is symmetrical Abdomen: Protuberant but soft no guarding or peritoneal signs Extremities: No gross deformities, No peripheral cyanosis. Able to move all 4 extremities. Neuro: Alert and oriented X3, Skin: No rashes, skin is warm dry and well perfused. Medical Decision Making Data Points Result Diagram: 03/12/19184903/12/191849 Laboratory Hematology Test 03/12/19 18:50 03/12/19 20:15 Red Blood Count 4.73 M/uL (4.17-5.56) Mean Corpuscular Volume 78.5 fL (80.0-96.0) Mean Corpuscular Hemoglobin 26.1 pg (26.0-33.0) Mean Corpuscular Hemoglobin Concent 33.2 g/dL (32.0-36.0) Red Cell Distribution Width 16.2 % (11.5-14.5) Mean Platelet Volume 7.8 fL (7.2-11.1) Neutrophils (%) (Auto) 54.4 % (39.4-72.5) Lymphocytes (%) (Auto) 31.9 % (17.6-49.6) Monocytes (%) (Auto) 9.0 % (4.1-12.4) Eosinophils (%) (Auto) 4.0 % (0.4-6.7) Basophils (%) (Auto) 0.7 % (0.3-1.4) Nucleated RBC Relative Count (auto) 0.0 /100WBC Neutrophils # (Auto) 4.3 K/uL (2.0-7.4) Lymphocytes # (Auto) 2.5 K/uL (1.3-3.6) Monocytes # (Auto) 0.7 K/uL (0.3-1.0) Eosinophils # (Auto) 0.3 K/uL (0.0-0.5) Basophils # (Auto) 0.1 K/uL (0.0-0.1) Nucleated RBC Absolute Count (auto) 0.00 K/uL Sodium Level 144 mmol/L (137-145) Potassium Level 4.0 mmol/L (3.5-5.0) Chloride Level 108 mmol/L (98-107) Carbon Dioxide Level 25 mmol/L (22-31) Blood Urea Nitrogen 13 mg/dl (7-18) Creatinine 0.70 mg/dl (0.52-1.04) Glomerular Filtration Rate Calc > 60.0 Random Glucose 71 mg/dl (75-110) Calcium Level 9.4 mg/dl (8.4-10.2) Total Bilirubin 0.3 mg/dl (0.2-1.3) Aspartate Amino Transf (AST/SGOT) 23 U/L (0-35) Alanine Aminotransferase (ALT/SGPT) 44 U/L (0-56) Alkaline Phosphatase 102 U/L (0-126) Total Protein 7.5 g/dl (6.3-8.2) Albumin 4.0 g/dl (3.5-5.0) Amylase Level 73 U/L (0-110) Lipase 126 U/L (23-300) Human Chorionic Gonadotropin, Qual Negative (NEGATIVE) Helicobacter pylori IgG Antibody Negative (NEGATIVE) Chemistry Test 03/12/19 18:50 03/12/19 20:15 White Blood Count 7.8 k/uL (4.5-11.0) Red Blood Count 4.73 M/uL (4.17-5.56) Hemoglobin 12.3 g/dL (12.0-16.0) Hematocrit 37.2 % (34.0-47.0) Mean Corpuscular Volume 78.5 fL (80.0-96.0) Mean Corpuscular Hemoglobin 26.1 pg (26.0-33.0) Mean Corpuscular Hemoglobin Concent 33.2 g/dL (32.0-36.0) Red Cell Distribution Width 16.2 % (11.5-14.5) Platelet Count 369 K/uL (150-450) Mean Platelet Volume 7.8 fL (7.2-11.1) Neutrophils (%) (Auto) 54.4 % (39.4-72.5) Lymphocytes (%) (Auto) 31.9 % (17.6-49.6) Monocytes (%) (Auto) 9.0 % (4.1-12.4) Eosinophils (%) (Auto) 4.0 % (0.4-6.7) Basophils (%) (Auto) 0.7 % (0.3-1.4) Nucleated RBC Relative Count (auto) 0.0 /100WBC Neutrophils # (Auto) 4.3 K/uL (2.0-7.4) Lymphocytes # (Auto) 2.5 K/uL (1.3-3.6) Monocytes # (Auto) 0.7 K/uL (0.3-1.0) Eosinophils # (Auto) 0.3 K/uL (0.0-0.5) Basophils # (Auto) 0.1 K/uL (0.0-0.1) Nucleated RBC Absolute Count (auto) 0.00 K/uL Glomerular Filtration Rate Calc > 60.0 Calcium Level 9.4 mg/dl (8.4-10.2) Total Bilirubin 0.3 mg/dl (0.2-1.3) Aspartate Amino Transf (AST/SGOT) 23 U/L (0-35) Alanine Aminotransferase (ALT/SGPT) 44 U/L (0-56) Alkaline Phosphatase 102 U/L (0-126) Total Protein 7.5 g/dl (6.3-8.2) Albumin 4.0 g/dl (3.5-5.0) Amylase Level 73 U/L (0-110) Lipase 126 U/L (23-300) Human Chorionic Gonadotropin, Qual Negative (NEGATIVE) Helicobacter pylori IgG Antibody Negative (NEGATIVE) Urinalysis Test 03/12/19 20:15 EKG/[place] [facility] [place] NAME: Shakeel Charles : 1995 MR: [id number] V: [id number] EXAM DATE: [id number] ORDERING PHYSICIAN: JANETT JOLLY TECHNOLOGIST: Location: [facility] - [place] Patient: Shakeel Charles : 1995 Visit/Account:[id number] Date of Sevice: 03/12/2019 CT ABDOMEN PELVIS W/ CON Additional pertinent History: Postop cholecystectomy. Epigastric pain TECHNIQUE: Spiral scan was through the abdomen and pelvis during injection of nonionic iodinated intravenous contrast. Contrast: 75 mL of IV Isovue-370 . One of the following dose optimization techniques was utilized in the performance of this exam: Automated exposure control; adjustment of the mA and/or kV according to the patient's size; or use of an iterative reconstruction technique. Specific details can be referenced in the facility's radiology CT exam operational policy. COMPARISON STUDIES: CT scan from February 28, 2019. FINDINGS: Liver / biliary: Postop changes in the gallbladder fossa. No free fluid. No inflammation. No evidence of hemorrhage. No fluid in the right subhepatic or paracolic gutter. Pancreas: No pancreatitis noted. Spleen: negative Adrenal glands: negative Kidneys / retroperitoneum: No renal calculi or renal obstructive uropathy change. No pyelonephritis Pelvic structures: Uterus and adnexal regions are unremarkable. Small amount of free fluid in the pelvis. Differential would include residual fluid from surgery and/or physiologic fluid from a possible ruptured ovarian cyst. Free fluid from possible bile leak considered much less likely considering negative fluid in the hepatic flexure or paracolic gutter.. Bowel / peritoneum / mesenteries: No colonic inflammation. Appendix normal with no evidence of appendicitis. Vessels: negative Musculoskeletal / Body wall: Post port changes in the umbilicus and in the right upper quadrant. Lymph node assessment: Scattered mesenteric lymph nodes compatible small mesenteric adenitis. Lymph nodes range in size from subcentimeter up to 1.2 cm in greatest dimension. Lower chest: negative IMPRESSION: 1. Postop cholecystectomy. No obvious post surgical adverse sequela change in the gallbladder fossa. 2. Small amount of free fluid in the pelvis likely physiologic and/or related t o recent surgery. Bile leak considered less likely. If there is any clinical concern HIDA scan will be needed for complete evaluation. 3. Mesenteric adenitis. Report Dictated By: Miguel Genao MD at 03/12/2019 7:43 PM Report E-Signed By: Miguel Genao MD at 03/12/2019 7:57 PM WSN:[email or web address] ED Course/Re-evaluation ED Course 03/12/2019 7:14:32 pm bloodwork so far is looking unremarkable, LFTs have returned normal postoperatively. This was relayed to the patient we had a brief discussion regarding normal LFTs and blood work. She seems comfortable at this time; awaiting results of the imaging study Decision to Disposition Date: Mar 12, 2019 Decision to Disposition Time: 20:15 Depart Departure Latest Vital Signs Vital Signs Date Time Temp Pulse Resp B/P (MAP) Pulse Ox O2 Delivery O2 Flow Rate FiO2 03/12/19 20:08 76 13 75 03/12/19 19:28 112/66 (81) 03/12/19 18:14 97.9 Room Air Impression: Primary Impression: Post-op pain Condition: Improved Disposition: HOME OR SELF-CARE New Scripts Ondansetron Hcl (ZOFRAN) 4 Mg Tablet 4 MG PO Q8H for Nausea, #15 TAB 0 Refills Prov: JANETT JOLLY MD 03/12/19 Hydrocodone Bit/Acetaminophen (HYDROCODON-ACETAMINOPHEN 5-325) 1 Each Tablet 1 EACH PO Q4H PRN for PAIN, #12 TAB 0 Refills Prov: JANETT JOLLY MD 03/12/19 Patient Instructions: Pain Management After Surgery (DC) JANETT JOLLY MD Mar 12, 2019 19:01
[2019-03-12 19:15] LABS: PLATELET COUNT, AUTOMATED 369 K/uL (150-450)
[2019-03-12 19:28] VITALS: BP 112/66
--- NOTE | 2019-03-12 20:02 | RADIOLOGY IMAGING REPORT ---
[place] [facility] [place] NAME: Shakeel Charles : 1995 MR: [id number] V: [id number] EXAM DATE: ORDERING PHYSICIAN: JANETT JOLLY TECHNOLOGIST: Location: [facility] - [place] Patient: Shakeel Charles : 1995 Visit/Account:[id number] Date of Sevice: 03/12/2019 CT ABDOMEN PELVIS W/ CON Additional pertinent History: Postop cholecystectomy. Epigastric pain TECHNIQUE: Spiral scan was through the abdomen and pelvis during injection of nonionic iodinated in travenous contrast. Contrast: 75 mL of IV Isovue-370 . One of the following dose optimization techniques was utilized in the performance of this exam: Aut omated exposure control; adjustment of the mA and/or kV according to the patient's size; or use of an iterative reconstruction technique. Specific details can be referenced in the facility's radiology CT exam operational policy. COMPARISON STUDIES: CT scan from February 28, 2019. FINDINGS: Liver / biliary: Postop changes in the gallbladder fossa. No free fluid. No inflammation. No evide nce of hemorrhage. No fluid in the right subhepatic or paracolic gutter. Pancreas: No pancreatitis noted. Spleen: negative Adrenal glands: negative Kidneys / retroperitoneum: No renal calculi or renal obstructive uropathy change. No pyelonephritis Pelvic structures: Uterus and adnexal regions are unremarkable. Small amount of free fluid in the pelvis. Differential would include residual fluid from surgery and/or physiologic fluid from a poss ible ruptured ovarian cyst. Free fluid from possible bile leak considered much less likely consideri ng negative fluid in the hepatic flexure or paracolic gutter.. Bowel / peritoneum / mesenteries: No colonic inflammation. Appendix normal with no evidence of appen dicitis. Vessels: negative Musculoskeletal / Body wall: Post port changes in the umbilicus and in the right upper quadrant. Lymph node assessment: Scattered mesenteric lymph nodes compatible small mesenteric adenitis. Lymph nodes range in size from subcentimeter up to 1.2 cm in greatest dimension. Lower chest: negative IMPRESSION: 1. Postop cholecystectomy. No obvious post surgical adverse sequela change in the gallbladder fossa . 2. Small amount of free fluid in the pelvis likely physiologic and/or related to recent surgery. Bi le leak considered less likely. If there is any clinical concern HIDA scan will be needed for comple te evaluation. 3. Mesenteric adenitis. Report Dictated By: Miguel Genao MD at 03/12/2019 7:43 PM Report E-Signed By: Miguel Genao MD at 03/12/2019 7:57 PM WSN:[email or web address]
[2019-03-12] MEDS ORDERED: LOR5/325 PO (20:18)
[2019-03-12] MEDS ORDERED: ONDA4TAB97 PO (20:18)
[2019-03-14] MEDS ORDERED: RANI-54 PO (15:49)
[2019-03-14] MEDS ORDERED: HYOS0.128 PO (15:49)
== END 2019-03-12 20:27 | disposition home or self-care (01) ==
LOC: ER 18:13
DX: G89.18 Other acute postprocedural pain (principal)
CPT/HCPCS: 74177; 81001; 82150; 83690; 84703; 85025; 86677; 99284; J7030; Q9967; 82040; 82247; 82310; 82374; 82435; 82565; 82947; 84075; 84132; 84155; 84295; 84450; 84460; 84520

== ENCOUNTER → 2019-04-03 | Outpatient (CLI) | payer OTHER ==
[2018-09-09 21:00] VITALS: BMI 42.5
[~2019-04-03] MED LIST changes: +BARIUM SULFATE 340 GM POWD ONE; +HYOS0.128 PO; +LOR5/325 PO; +ONDA4TAB97 PO; +PANT40TA65 PO
--- NOTE | 2019-04-03 14:11 | RADIOLOGY IMAGING REPORT ---
FACILITY: [facility] [place] PATIENT NAME: Shakeel Charles : 1995 MR: [id number] V: [id number] EXAM DATE: ORDERING PHYSICIAN: TATIANA TAYLOR TECHNOLOGIST: Location: [facility] [place] Patient: Shakeel Charles : 1995 Visit/Account:[id number] Date of Sevice: 04/03/2019 ESOPHAGRAM HISTORY: Chest pain COMPARISON: None TECHNIQUE: Fizzies followed by multiple consistencies of barium were administered orally with multipl e spot films obtained. A 13 mm barium tablet was also administered. FINDINGS: Esophagus: Prominence of the cricopharyngeus. Otherwise no persistent intrinsic or extrinsic filling defects. Hiatal hernia: There is no significant hiatal hernia. Reflux: 1 episode of gastroesophageal reflux visualized to the clavicular heads Other findings: A barium tablet passed easily without holdup. Dose area product of 546 uGym2 IMPRESSION: 1. Prominence of the cricopharyngeus with one episode of gastroesophageal reflux visualized to the c lavicular heads. Report Dictated By: Dorian Tamez MD at 04/03/2019 2:01 PM Report E-Signed By: Dorian Tamez MD at 04/03/2019 2:03 PM WSN:[email or web address]
== END ==
LOC: RAD 01:03
PROVIDERS: ATTEND Surgery
DX: K21.9 Gastro-esophageal reflux disease without esophagitis (principal)
CPT/HCPCS: 74220

== ENCOUNTER 2019-04-26 02:09 | Day surgery (SDC) | payer OTHER ==
[2018-09-09 21:00] VITALS: Ht 160 cm; Wt 102.1 kg
[~2019-04-26] VITALS: Ht 160 cm; Wt 102.1 kg
[~2019-04-26 02:09] MED LIST changes: -BARIUM SULFATE 340 GM POWD ONE
[2019-04-26] MEDS ORDERED: PROPOFOL EMUL(*) 10MG/ML 20 ML 40 ML ONE (07:02)
[2019-04-26 09:33] VITALS: BP 105/66
[2019-04-26] MEDS: NORMOSOL R SOLN(*) 1000 ML BAG 1,000 ML IV PRN ×2 (09:47→11:49)
[2019-04-26] MEDS ORDERED: LIDOCAINE/SOD BICARB 8.4% SYR ID ONE (10:00)
[2019-04-26 12:07] VITALS: BP 95/59
--- NOTE | 2019-04-26 12:10 | NUR ---
Patient distressed. crying and hyperventilating. tried with to do controlled breathing and reassurance. interventions would work briefly then patient would continue crying and hyperventilating.
--- NOTE | 2019-04-26 12:12 | NUR ---
patient continuely tires to take off oxymask. patient states she wants it off. removed from patient and patient placed on room air. no respiratory distress noted. will continue to monitor
--- NOTE | 2019-04-26 12:15 | NUR ---
Patient beginning to calm. was starting to become more coherent when asked about water or crackers. will continue to monitor for more signs of distress.
--- NOTE | 2019-04-26 12:16 | Short(Outpt) Discharge Summary ---
Discharge Summary Reason for Hosp/Final Diag: (1) Chest discomfort Status: Chronic Departure Discharge to: Home, Self Care Discharge Instructions Home Meds Active Scripts Pantoprazole Sodium (PANTOPRAZOLE SODIUM) 40 Mg Tablet.dr, 1 TAB PO BID, #90 TAB 3 Refills Take on an empty stomach and wait 30 minutes before eating. Prov:TATIANA TAYLOR MD 04/20/19 Reported Medications Sertraline Hcl (ZOLOFT) 100 Mg Tablet, 1 TAB PO QDAY, TAB 02/28/19 Diet: Regular Activity: As Tolerated Special Instructions: Your upper endoscopy was completed without any problems. I didn't find any abnormalities in your upper GI tract. Since your symptoms seem to be getting better on pantoprazole, you likely have dyspepsia which is irritation of your upper GI tract due to too much acid. Continue taking the pantoprazole. My office will call you in the next day or two to schedule a follow up appointment for me to see how you're doing. TATIANA TAYLOR MD Apr 26, 2019 12:16
--- NOTE | 2019-04-26 12:20 | NUR ---
patient is thankful to have food and distraction. also thankful mask is no longer on. will continue to monitor and assess.
[2019-04-26 12:30] VITALS: BP 92/58
[2019-04-26 13:00] VITALS: BP 105/72
[2019-04-26 13:05] VITALS: BP 103/89
[2019-04-26 13:06] VITALS: BP 99/72
--- NOTE | 2019-04-26 13:07 | NUR ---
Orthostatic vitals complete. patient tolerated well. see vitals for report.
== END 2019-04-26 13:16 | disposition home or self-care (01) ==
LOC: OR 02:09
PROVIDERS: ATTEND Surgery
DX: R07.89 Other chest pain (principal)
CPT/HCPCS: 36415; 43235; 84703; J2704